=== PATIENT | female | born 1970 | race Caucasian/White ===

== ENCOUNTER 2024-04-26 11:00 | Outpatient (CLI) | payer OTHER | END 2024-04-26 11:08 | disposition home or self-care (01) | LOC: TOM 11:00 | PROVIDERS: ATTEND Specialist | DX: R10.9 Unspecified abdominal pain (principal); K80.10 Calculus of gallbladder with chronic cholecystitis without obstruction ==

== ENCOUNTER 2024-05-05 10:17 | Outpatient (CLI) | payer OTHER | END 2024-05-05 10:21 | disposition home or self-care (01) | LOC: SONOGRAMA 10:17 | PROVIDERS: ATTEND Specialist | DX: K80.10 Calculus of gallbladder with chronic cholecystitis without obstruction (principal) ==

== ENCOUNTER 2024-05-15 11:40 | Outpatient (CLI) | payer OTHER | END 2024-05-15 11:42 | disposition home or self-care (01) | LOC: MRI 11:40 | DX: G43.909 Migraine, unspecified, not intractable, without status migrainosus (principal) | CPT/HCPCS: 70551 ==

== ENCOUNTER → 2025-01-01 09:27 | Outpatient (CLI) | payer OTHER | END | disposition home or self-care (01) | LOC: NUCLEAR 09:27 | PROVIDERS: ATTEND Specialist | DX: K81.9 Cholecystitis, unspecified (principal) | CPT/HCPCS: 78227; A9537 ==

== ENCOUNTER 2025-01-11 08:59 | Outpatient (CLI) | payer OTHER | END 2025-01-11 09:06 | disposition home or self-care (01) | LOC: SONOGRAMA 08:59 | PROVIDERS: ATTEND Specialist | DX: K80.10 Calculus of gallbladder with chronic cholecystitis without obstruction (principal) ==

== ENCOUNTER → 2025-08-21 | Outpatient (CLI) | payer OTHER | END | disposition home or self-care (01) | LOC: SONOGRAMA 09:14 | PROVIDERS: ATTEND Specialist | DX: K82.4 Cholesterolosis of gallbladder (principal) ==